=== PATIENT | male | born 1955 | race Caucasian/White ===

== ENCOUNTER 2017-05-23 11:21 | Emergency (ER) | payer OTHER ==
[~2017-05-23 11:21] MED LIST: ALBUAER3 INH; ASPI1TAB69 PO; FURO20TA PO; GLIP10TA6 PO; HYDR12.56 PO; LANTUS2P SQ; METF500T PO; METO25TA3 PO; NOVORP2 SQ; ZITHTAB PO; [UNRECOGNIZED DRUG - CODE] PO
[2017-05-23 11:26] VITALS: BP 188/106; PULSE 103; RESP 18; TEMP 98; O2SAT 95
[2017-05-23 12:44] LABS: AUTOMATED NEUTROPHIL # 5.5 TH/MM3 (1.8-7.7); BASOPHIL % 0.5 % (0.0-2.0); EOSINOPHIL # 0.1 TH/MM3 (0-0.4); EOSINOPHIL % 1.5 % (0.0-4.0); HEMATOCRIT 43.4 % (39.0-51.0); HEMO FLAGS DIFF FINAL; LYMPH % 21.1 % (9.0-44.0); LYMPHOCYTE # 1.7 TH/MM3 (1.0-4.8); MEAN CELL VOLUME 75.5 FL (80.0-100.0); MEAN CORPUSCULAR HEMOGLOBIN 24.3 PG (27.0-34.0); MEAN CORPUSCULAR HGB CONC 32.1 % (32.0-36.0); MONO % 10.5 % (0.0-8.0); NEUT % 66.4 % (16.0-70.0); PLATELET COUNT 134 TH/MM3 (150-450); RED BLOOD COUNT 5.75 MIL/MM3 (4.50-5.90); RED CELL DISTRIBUTION WIDTH 16.8 % (11.6-17.2); WHITE BLOOD COUNT 8.3 TH/MM3 (4.0-11.0)
[2017-05-23] MEDS ORDERED: LISINOPRIL 20 MG TAB PO ONE (12:45)
[2017-05-23] MEDS ORDERED: INSULIN ASPART 1,000 UNITS/10 ML VIAL SQ ONE (12:45)
[2017-05-23] MEDS ORDERED: SODIUM CHLOR 0.9% 1000 ML INJ 1,000 ML IV ONE (12:45)
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
[2017-05-23] MEDS ORDERED: HYDR50TA94 PO (12:57)
[2017-05-23] MEDS ORDERED: SENN8.6T81 PO (12:57)
[2017-05-23] MEDS ORDERED: HYDR25TA5 PO (12:57)
[2017-05-23] MEDS ORDERED: OMEP20TA93 PO (12:57)
[2017-05-23] MEDS ORDERED: AMLO10TA2 PO (12:57)
[2017-05-23] MEDS ORDERED: SERT-129 PO (12:57)
[2017-05-23 12:58] LABS: ANION GAP 10 MEQ/L (5-15); APTT (PATIENT) 25.2 SEC (24.3-30.1); BICARBONATE 26.2 MEQ/L (21.0-32.0); BLOOD UREA NITROGEN 17 MG/DL (7-18); CHLORIDE 95 MEQ/L (98-107); GLOMERULAR FILTRATION RATE 61 ML/MIN (>89); INTERNATIONAL NORMALIZED RATIO 1.1 RATIO; MAGNESIUM 2.4 MG/DL (1.5-2.5); POTASSIUM 3.8 MEQ/L (3.5-5.1); PROTHROMBIN TIME - PATIENT 11.8 SEC (9.8-11.6); SODIUM (NA) 131 MEQ/L (136-145)
[2017-05-23 13:01] LABS: CREATINE KINASE 167 U/L (39-308)
--- NOTE | 2017-05-23 13:17 | RADRPT ---
EXAM DATE/TIME: 05/23/2017 12:51 [facility] COMPARISON: CHEST PA & LAT, July 09, 2016, 16:06. INDICATIONS : Chest pain and dizziness. MEDICAL HISTORY : Diabetes mellitus type II. Chronic obstructive pulmonary disease. SURGICAL HISTORY : Inguinal hernia repair. ENCOUNTER: Initial ACUITY: 1 day PAIN SCORE: 3/10 LOCATION: Bilateral chest FINDINGS: PA and lateral views of the chest demonstrate the lungs to be symmetrically aerated without evidence of mass, infiltrate or effusion. The cardiomediastinal contours are unremarkable. Osseous structure s are intact. CONCLUSION: No acute disease. Perry Villarreal Jr., MD on May 23, 2017 at 13:16 Board Certified Radiologist. This report was verified electronically.
[2017-05-23] MEDS ORDERED: INSU-119 (15:26)
[2017-05-23] MEDS ORDERED: LISI10TA3 PO (15:26)
--- NOTE | 2017-05-23 21:16 | EKG ---
Date Performed: 05/23/2017 Time Performed: 12:16:53 PTAGE: 62 years EKG: SINUS TACHYCARDIA LOW QRS VOLTAGE IN PRECORDIAL LEADS ABNORMAL R WAVE PROGRESSION INFERIOR MYOCARDIAL INFARCTION ABNORMAL ECG Compared to the PREVIOUS TRACING rate faster DOCTOR: Trina Hoffman Interpretating Date/Time 05/23/2017 21:14:38
== END 2017-05-23 15:41 | disposition home or self-care (01) ==
LOC: NEPD 11:21
DX: E11.65 Type 2 diabetes mellitus with hyperglycemia (principal); I10 Essential (primary) hypertension; R00.0 Tachycardia, unspecified; R51 Headache; J02.9 Acute pharyngitis, unspecified; R09.81 Nasal congestion; R07.9 Chest pain, unspecified; R05 Cough; J44.9 Chronic obstructive pulmonary disease, unspecified
CPT/HCPCS: 71020; 80048; 82550; 82552; 83690; 83735; 84484; 85025; 85610; 85730; 93005; 96360; 96372; 99285; J1815; J7030

== ENCOUNTER 2017-05-24 22:22 | Emergency (ER) | payer OTHER ==
[~2017-05-24] VITALS: Ht 167.6 cm; Wt 126.0 kg
[~2017-05-24 22:22] MED LIST changes: +AMLO10TA2 PO; -ASPI1TAB69 PO; -HYDR12.56 PO; +HYDR25TA5 PO; +HYDR50TA94 PO; +INSU-119; +LISI10TA3 PO; -METO25TA3 PO; +OMEP20TA93 PO; +SENN8.6T81 PO; +SERT-129 PO; -ZITHTAB PO; -[UNRECOGNIZED DRUG - CODE] PO
[2017-05-24 22:26] VITALS: BP 159/91; PULSE 91; RESP 18; TEMP 97.7; O2SAT 96
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
[2017-05-24] MEDS ORDERED: SODIUM CHLOR 0.9% 1000 ML INJ 1,000 ML IV ONE (23:15)
[2017-05-24 23:17] LABS: AUTOMATED NEUTROPHIL # 4.1 TH/MM3 (1.8-7.7); BASOPHIL % 0.5 % (0.0-2.0); EOSINOPHIL # 0.2 TH/MM3 (0-0.4); EOSINOPHIL % 2.1 % (0.0-4.0); HEMATOCRIT 40.4 % (39.0-51.0); HEMO FLAGS DIFF FINAL; LYMPH % 30.1 % (9.0-44.0); LYMPHOCYTE # 2.2 TH/MM3 (1.0-4.8); MEAN CELL VOLUME 76.1 FL (80.0-100.0); MEAN CORPUSCULAR HEMOGLOBIN 24.5 PG (27.0-34.0); MEAN CORPUSCULAR HGB CONC 32.2 % (32.0-36.0); MONO % 12.1 % (0.0-8.0); NEUT % 55.2 % (16.0-70.0); PLATELET COUNT 118 TH/MM3 (150-450); RED BLOOD COUNT 5.31 MIL/MM3 (4.50-5.90); RED CELL DISTRIBUTION WIDTH 17.1 % (11.6-17.2); WHITE BLOOD COUNT 7.4 TH/MM3 (4.0-11.0)
[2017-05-24 23:45] LABS: ANION GAP 10 MEQ/L (5-15)
[2017-05-24 23:57] LABS: ALKALINE PHOSPHATASE 111 U/L (45-117); ALT (GPT) 79 U/L (12-78); AST (GOT) 49 U/L (15-37); BICARBONATE 26.3 MEQ/L (21.0-32.0); BLOOD UREA NITROGEN 15 MG/DL (7-18); CHLORIDE 96 MEQ/L (98-107); GLOMERULAR FILTRATION RATE 64 ML/MIN (>89); POTASSIUM 3.9 MEQ/L (3.5-5.1); SODIUM (NA) 132 MEQ/L (136-145); TOTAL BILIRUBIN ADULT 0.4 MG/DL (0.2-1.0)
[2017-05-25] VITALS: BP 137/78; PULSE 68; RESP 18; O2SAT 99
[2017-05-25] MEDS ORDERED: INSULIN HUMAN REGULAR 1,000 UNITS/10 ML VIAL IV PUSH ONE ×2 (00:30→02:00)
[2017-05-25 02:00] VITALS: BP 135/85; PULSE 86; RESP 18; O2SAT 100
[2017-05-25] MEDS ORDERED: SODIUM CHLOR 0.9% 1000 ML INJ 1,000 ML IV ONE (02:00)
== END 2017-05-25 04:58 | disposition home or self-care (01) ==
LOC: NEPC 22:22
DX: E11.65 Type 2 diabetes mellitus with hyperglycemia (principal); I10 Essential (primary) hypertension; I25.10 Atherosclerotic heart disease of native coronary artery without angina pectoris; E78.00 Pure hypercholesterolemia, unspecified; F41.9 Anxiety disorder, unspecified
CPT/HCPCS: 80053; 83690; 85025; 96361; 96374; 96376; 99284; J1815; J7030